=== PATIENT | female | born 1980 | race Caucasian/White ===

== ENCOUNTER 2023-10-03 22:22 | Emergency (ER) | payer OTHER ==
[~2023-10-03] VITALS: Ht 165.1 cm; Wt 121.0 kg
[2023-10-03] MEDS ORDERED: LISINOPRIL2.5 MG PO (23:20)
[2023-10-03] MEDS ORDERED: OMEPRAZOLE20 MG PO (23:20)
[2023-10-03] MEDS ORDERED: GLIPIZIDE ER2.5 MG PO (23:20)
[2023-10-03] MEDS ORDERED: METFORMIN HCL500 M2 PO (23:20)
[2023-10-03] MEDS ORDERED: LIPITOR10 MG PO (23:20)
[2023-10-03] MEDS ORDERED: ZOVIRAX200 MG/5 M PO (23:21)
[2023-10-03] MEDS ORDERED: SUBOXONE 12 MG1 EACH SL (23:21)
[2023-10-03] MEDS ORDERED: VENTOLIN HFA18 GM INH (23:21)
[2023-10-03] MEDS ORDERED: WELLBUTRIN SR100 MG PO (23:21)
[2023-10-03] MEDS ORDERED: NYSTATIN100000 UN1 PO (23:37)
[2023-10-04] MEDS ORDERED: NYSTATIN100000 UN1 PO (00:01)
[2023-10-04 00:05] VITALS: BP 132/79
== END 2023-10-04 00:05 | disposition home or self-care (01) ==
LOC: ED 22:22
DX: B37.0 Candidal stomatitis (principal); E11.9 Type 2 diabetes mellitus without complications; I10 Essential (primary) hypertension; Z88.1 Allergy status to other antibiotic agents; Z79.899 Other long term (current) drug therapy; Z79.84 Long term (current) use of oral hypoglycemic drugs
CPT/HCPCS: 99282